=== PATIENT | female | born 1940 | race Caucasian/White ===

== ENCOUNTER 2018-10-09 18:22 | Emergency (ER) | payer MEDICARE ==
[2015-08-14 10:51] VITALS: Wt 59.0 kg
[~2018-10-09 18:22] MED LIST changes: -ONDA4TAB97 PO
--- NOTE | 2018-10-09 18:28 | ER Report ---
History and Physical Time Seen By MD: 18:28 HPI/ROS CHIEF COMPLAINT: Fall with subarachnoid bleed HISTORY OF PRESENT ILLNESS: 78-year-old female patient presents to emergency room with complaint of a fall with a subarachnoid bleed. Patient states that she was considering him dog food at about 3:30 this afternoon. She states that her nephew is holding the door open for her when she stepped back and lost her balance falling backwards and striking the back of her head. She states she did try to grab onto the railing to prevent the fall, however was unable to. Patient states that she went to [facility], an urgent care here in [place]. She states that they did put hecotr in her scalp and sent her over here for a CT scan. She was contacted by the provider who told her there may be something wrong and she was directed to come to the emergency room for further evaluation. Patient denies having a headache, nausea, vomiting, dizziness. She states she is not taking any medication for this. She denies any neck or back pain. REVIEW OF SYSTEMS: Respiratory: No cough, no dyspnea. Cardiovascular: No chest pain, no palpitations. Gastrointestinal: No vomiting, no abdominal pain. Musculoskeletal: No back pain. Allergies: Coded Allergies: No Known Drug Allergies (Unverified , 10/09/18) Home Meds Reported Medications Calcium Carb & Cit/Vitamin D3 (CALCIUM + D3 ER TABLET) 1 Each Tablet.er, 1 EACH PO DAILY 08/11/15 Multivitamin (MULTI VITAMIN DAILY) 1 Each Tablet, 1 EACH PO QDAY 08/05/15 Lutein (LUTEIN) 10 Mg Tablet, 10 MG PO QDAY 08/05/15 Losartan Potassium (LOSARTAN POTASSIUM) 100 Mg Tablet, 100 MG PO QDAY 08/05/15 Levothyroxine Sodium (SYNTHROID) 125 Mcg Tablet, 125 MCG PO QDAY 08/05/15 Discontinued Reported Medications Spironolactone (SPIRONOLACTONE) 25 Mg Tablet, 25 MG PO QDAY 08/05/15 Past Medical/Surgical History Patient has a past medical history of concussion, migraine, hypertension, arthritis, hypothyroidism, alcohol use, breast cancer. Patient has surgical history of appendectomy, hysterectomy, partial thyroidectomy, carpal tunnel release bilaterally. Reviewed Nurses Notes: Yes Hx Smoking: No Smoking Status: Never Smoker Hx Alcohol Use: Yes Constitutional Vital Sign - Last 24 Hours 10/09/18 10/09/18 10/09/18 10/09/18 18:27 18:27 18:30 18:37 Temp 98.2 Pulse 100 121 Resp 16 B/P (MAP) 155/88 155/88 (110) 164/102 (122) Pulse Ox 87 90 O2 Delivery Room Air 10/09/18 10/09/18 10/09/18 10/09/18 18:52 19:00 19:07 19:12 Pulse 87 85 86 B/P (MAP) 152/100 (117) Pulse Ox 82 91 92 10/09/18 10/09/18 10/09/18 10/09/18 19:27 19:30 19:42 19:57 Pulse 93 101 99 B/P (MAP) 155/96 (115) Pulse Ox 94 89 88 10/09/18 10/09/18 10/09/18 10/09/18 20:00 20:12 20:27 20:30 Pulse 96 105 B/P (MAP) ???/??? (1665) 135/100 (112) Pulse Ox 97 96 10/09/18 10/09/18 10/09/18 10/09/18 20:42 20:57 21:00 21:02 Pulse 97 97 B/P (MAP) 132/112 (119) Pulse Ox 96 97 O2 Flow Rate 2.0 10/09/18 10/09/18 10/09/18 21:05 21:20 21:35 Pulse ? Physical Exam General Appearance: The patient is alert, has no immediate need for airway protection and no current signs of toxicity. Eyes: Pupils equal and round no injection. Extraocular movements are intact. ENT: Tympanic membranes are pearly-bates, auditory canals are patent, mucous members are moist. Respiratory: Chest is non tender, lungs are clear to auscultation. Cardiac: regular rate and rhythm Gastrointestinal: Abdomen is soft and non tender, no masses, bowel sounds normal. Musculoskeletal: Neck: Neck is supple and non tender. Extremities have full range of motion and are non tender. Skin: No rashes or lesions. Patient has laceration to the back of her head which has been stapled. Neuro: Patient is alert and oriented 4, cranial nerves II through XII grossly intact. Patient was able to complete 3 word recall 3/3 at zero minutes and 3/3 at 5 minutes DIFFERENTIAL DIAGNOSIS: After history and physical exam differential diagnosis was considered for subarachnoid bleed, concussion. Medical Decision Making Data Points Result Diagram: 10/09/18184610/09/187 Laboratory Hematology Test 10/09/18 18:47 Red Blood Count 4.83 M/uL (4.17-5.56) Mean Corpuscular Volume 89.5 fL (80.0-96.0) Mean Corpuscular Hemoglobin 29.9 pg (26.0-33.0) Mean Corpuscular Hemoglobin Concent 33.4 g/dL (32.0-36.0) Red Cell Distribution Width 14.4 % (11.5-14.5) Mean Platelet Volume 9.3 fL (7.2-11.1) Neutrophils (%) (Auto) 82.2 % (39.4-72.5) Lymphocytes (%) (Auto) 11.2 % (17.6-49.6) Monocytes (%) (Auto) 5.6 % (4.1-12.4) Eosinophils (%) (Auto) 0.5 % (0.4-6.7) Basophils (%) (Auto) 0.5 % (0.3-1.4) Nucleated RBC Relative Count (auto) 0.0 /100WBC Neutrophils # (Auto) 6.0 K/uL (2.0-7.4) Lymphocytes # (Auto) 0.8 K/uL (1.3-3.6) Monocytes # (Auto) 0.4 K/uL (0.3-1.0) Eosinophils # (Auto) 0.0 K/uL (0.0-0.5) Basophils # (Auto) 0.0 K/uL (0.0-0.1) Nucleated RBC Absolute Count (auto) 0.00 K/uL Prothrombin Time 12.9 seconds (12.0-14.4) Prothromb Time International Ratio 0.98 Activated Partial Thromboplast Time 27 seconds (23-35) Sodium Level 134 mmol/L (137-145) Potassium Level 3.7 mmol/L (3.5-5.0) Chloride Level 105 mmol/L (98-107) Carbon Dioxide Level 23 mmol/L (22-31) Blood Urea Nitrogen 19 mg/dl (7-18) Creatinine 0.70 mg/dl (0.52-1.04) Glomerular Filtration Rate Calc > 60.0 Random Glucose 93 mg/dl (75-110) Calcium Level 9.3 mg/dl (8.4-10.2) Total Bilirubin 0.7 mg/dl (0.2-1.3) Aspartate Amino Transf (AST/SGOT) 66 U/L (0-35) Alanine Aminotransferase (ALT/SGPT) 64 U/L (0-56) Alkaline Phosphatase 70 U/L (0-126) Total Protein 7.3 g/dl (6.3-8.2) Albumin 4.4 g/dl (3.5-5.0) Chemistry Test 10/09/18 18:47 White Blood Count 7.3 k/uL (4.5-11.0) Red Blood Count 4.83 M/uL (4.17-5.56) Hemoglobin 14.4 g/dL (12.0-16.0) Hematocrit 43.2 % (34.0-47.0) Mean Corpuscular Volume 89.5 fL (80.0-96.0) Mean Corpuscular Hemoglobin 29.9 pg (26.0-33.0) Mean Corpuscular Hemoglobin Concent 33.4 g/dL (32.0-36.0) Red Cell Distribution Width 14.4 % (11.5-14.5) Platelet Count 174 K/uL (150-450) Mean Platelet Volume 9.3 fL (7.2-11.1) Neutrophils (%) (Auto) 82.2 % (39.4-72.5) Lymphocytes (%) (Auto) 11.2 % (17.6-49.6) Monocytes (%) (Auto) 5.6 % (4.1-12.4) Eosinophils (%) (Auto) 0.5 % (0.4-6.7) Basophils (%) (Auto) 0.5 % (0.3-1.4) Nucleated RBC Relative Count (auto) 0.0 /100WBC Neutrophils # (Auto) 6.0 K/uL (2.0-7.4) Lymphocytes # (Auto) 0.8 K/uL (1.3-3.6) Monocytes # (Auto) 0.4 K/uL (0.3-1.0) Eosinophils # (Auto) 0.0 K/uL (0.0-0.5) Basophils # (Auto) 0.0 K/uL (0.0-0.1) Nucleated RBC Absolute Count (auto) 0.00 K/uL Prothrombin Time 12.9 seconds (12.0-14.4) Prothromb Time International Ratio 0.98 Activated Partial Thromboplast Time 27 seconds (23-35) Glomerular Filtration Rate Calc > 60.0 Calcium Level 9.3 mg/dl (8.4-10.2) Total Bilirubin 0.7 mg/dl (0.2-1.3) Aspartate Amino Transf (AST/SGOT) 66 U/L (0-35) Alanine Aminotransferase (ALT/SGPT) 64 U/L (0-56) Alkaline Phosphatase 70 U/L (0-126) Total Protein 7.3 g/dl (6.3-8.2) Albumin 4.4 g/dl (3.5-5.0) Coagulation Test 10/09/18 18:47 Prothrombin Time 12.9 seconds Prothromb Time International Ratio 0.98 Activated Partial Thromboplast Time 27 seconds EKG/Imaging Imaging CT scan was done prior to arrival in the emergency room and this is the according report: CT Head without contrast Indication: Fell and hit head. Posterior hematoma and laceration. Comparison: None available Technique: Axial CT images were obtained through the brain from the skull base to the vertex without administration of IV contrast. Reformatted coronal and sagittal images were also obtained. One of the following dose optimization techniques was utilized in the performanc e of this exam: automated exposure control; adjustment of the mA and/or kV according to the patient's size; or use of an iterative reconstruction technique. Specific details can be referenced in the facility's radiology CT exam operational policy. Findings: No evidence of mass, mass effect, or midline shift. There is mild thickening and increased attenuation of the falx. On the coronal images this measures 2.8 mm. This may represent subacute parenchymal hemorrhage. The tentorium shows a more normal appearance. There is no other indication of intracranial bleed, midline shift, extra-axial fluid collection or hydrocephalus. Mild age-related cerebral atrophy. Mild periventricular white matter ischemic changes consistent small vessel disease. Bates/white matter differentiation appears normal. The bony structures show no fractures or aggressive bony lesions. The left posterior scalp shows a large hematoma and skin hector. The visualized paranasal sinuses and mastoid air cells are clear. IMPRESSION: 1. There is mild thickening and increased attenuation of the falx consistent with an acute subarachnoid hemorrhage. There is no associated sequelae. No other indication of acute intracranial abnormality. No skull fracture. Large posterior left scalp hematoma with skin hector. I called report to YSABEL LOWE at 10/09/2018 6:16 PM. Report Dictated By: Ever Blas at 10/09/2018 6:04 PM Report E-Signed By: Ever Blas at 10/09/2018 6:16 PM INDICATION: fall. DATE: 10/09/2018 9:23 PM. TECHNIQUE: CT VERTEBRA CERVICAL (NON CON). Noncontrast axial CT imaging was performed through the cervical spine with sagittal and coronal reformats. One of the following dose optimization techniques was utilized in the performance of this exam: Automated exposure control; adjustment of the mA and/or kV according to the patient's size; or use of an iterative reconstruction technique. Specific details can be referenced in the facility's radiology CT exam operational policy. COMPARISON: None FINDINGS: Vertebral body heights are maintained. Vertebral body and facet alignment are normal. There is no cervical spine fracture or dislocation. Multilevel degenerative findings are relatively mild except at the C1-dens articulation where there are moderate to severe. The imaged lung apices show only minimal scarring. IMPRESSION: No cervical spine fracture or dislocation. Report Dictated By: Zhou Hardy MD at 10/09/2018 9:23 PM Report E-Signed By: Zhou Hardy MD at 10/09/2018 9:37 PM ED Course/Re-evaluation ED Course Patient was admitted on exam room, history and physical were obtained. Differential diagnoses were considered. On examination patient is alert and oriented 4, cranial nerves II-XII grossly intact. Lungs are clear, heart is regular. A CBC, CMP, PT and PTT were ordered. Lab results were unremarkable. At that time I did call and discuss the case with Dr. Crews, trauma surgeon at [facility], who agreed to accept the patient for admission. He did request that a CT scan of the cervical spine be done prior to transfer. I then spoke with Dr. Diallo, ER physician at [facility], who was grateful for the report prior to transfer. I discussed the results of the labs with patient as well as conversation with Dr. Crews. I discussed were going to do a CT scan of the cervical spine to make sure there is no fractures. She verbalized understanding and agreement. She understood that she is going to transfer images were transferred down by ambulance. Patient denied having any questions or concerns at this time. Decision to Disposition Date: Oct 09, 2018 Decision to Disposition Time: 20:16 Depart Departure Latest Vital Signs Vital Signs Date Time Temp Pulse Resp B/P (MAP) Pulse Ox O2 Delivery O2 Flow Rate FiO2 10/09/18 21:35 ??? 10/09/18 21:02 2.0 10/09/18 21:00 132/112 (119) 10/09/18 20:57 97 10/09/18 18:27 98.2 16 Room Air Impression: Primary Impression: Subarachnoid bleed Condition: Condition Unchanged Disposition: XFER TO [facility] Referrals: AARON MCLAUGHLIN (PCP) SANJUANA PHAM Oct 09, 2018 18:28
[2018-10-09 18:57] LABS: PLATELET COUNT, AUTOMATED 174 K/uL (150-450)
[2018-10-09 19:25] LABS: INR 0.98
[2018-10-09 21:00] VITALS: BP 132/112
--- NOTE | 2018-10-09 21:40 | RADIOLOGY IMAGING REPORT ---
FACILITY: [facility] PATIENT NAME: Shanti Zarate : 1940 MR: [id number] V: [id number] EXAM DATE: ORDERING PHYSICIAN: SANJUANA PHAM TECHNOLOGIST: Location: [facility] Patient: Shanti Zarate : 1940 Visit/Account:[id number] Date of Sevice: 10/09/2018 INDICATION: fall. DATE: 10/09/2018 9:23 PM. TECHNIQUE: CT VERTEBRA CERVICAL (NON CON). Noncontrast axial CT imaging was performed through the ce rvical spine with sagittal and coronal reformats. One of the following dose optimization techniques was utilized in the performance of this exam: Automated exposure control; adjustment of the mA and/or kV according to the patient's size; or use of an iterative reconstruction technique. Specific deta ils can be referenced in the facility's radiology CT exam operational policy. COMPARISON: None FINDINGS: Vertebral body heights are maintained. Vertebral body and facet alignment are normal. The re is no cervical spine fracture or dislocation. Multilevel degenerative findings are relatively mil d except at the C1-dens articulation where there are moderate to severe. The imaged lung apices show only minimal scarring. IMPRESSION: No cervical spine fracture or dislocation. Report Dictated By: Zhou Hardy MD at 10/09/2018 9:23 PM Report E-Signed By: Zhou Hardy MD at 10/09/2018 9:37 PM [id number]
== END 2018-10-09 21:35 | disposition short-term general hospital (02) ==
LOC: ER 18:52
DX: S06.6X9A Traumatic subarachnoid hemorrhage with loss of consciousness of unspecified duration, initial encounter (principal); W01.198A Fall on same level from slipping, tripping and stumbling with subsequent striking against other object, initial encounter
CPT/HCPCS: 72125; 82040; 82247; 82310; 82374; 82435; 82565; 82947; 84075; 84132; 84155; 84295; 84450; 84460; 84520; 85025; 85610; 85730; 99285

== ENCOUNTER → 2018-10-09 | Outpatient (CLI) | payer MEDICARE ==
[2015-08-14 10:51] VITALS: BMI 20.5
[~2018-10-09] MED LIST: CA C1TAB10 PO; CALC1TAB32 PO; DOCU-202 PO; LEVO125T77 PO; LOSA100T75 PO; LUTE10TA3 PO; MULT1TAB64 PO; PER PO; SPIR25TA80 PO; VITA200C44 PO
--- NOTE | 2018-10-09 18:19 | RADIOLOGY IMAGING REPORT ---
FACILITY: [facility] PATIENT NAME: Shanti Zarate : 1940 MR: [id number] V: [id number] EXAM DATE: ORDERING PHYSICIAN: YSABEL LOWE TECHNOLOGIST: [facility] Patient: Shanti Zarate : 1940 Visit/Account:[id number] Date of Sevice: 10/09/2018 CT Head without contrast Indication: Fell and hit head. Posterior hematoma and laceration. Comparison: None available Technique: Axial CT images were obtained through the brain from the skull base to the vertex without administration of IV contrast. Reformatted coronal and sagittal images were also obtained. One of the following dose optimization techniques was utilized in the performance of this exam: autom ated exposure control; adjustment of the mA and/or kV according to the patient's size; or use of an i terative reconstruction technique. Specific details can be referenced in the facility's radiology CT exam operational policy. Findings: No evidence of mass, mass effect, or midline shift. There is mild thickening and increased attenuation of the falx. On the coronal images this measures 2 .8 mm. This may represent subacute parenchymal hemorrhage. The tentorium shows a more normal appearan ce. There is no other indication of intracranial bleed, midline shift, extra-axial fluid collection o r hydrocephalus. Mild age-related cerebral atrophy. Mild periventricular white matter ischemic changes consistent smal l vessel disease. Bates/white matter differentiation appears normal. The bony structures show no fractures or aggressive bony lesions. The left posterior scalp shows a la rge hematoma and skin hector. The visualized paranasal sinuses and mastoid air cells are clear. IMPRESSION: 1. There is mild thickening and increased attenuation of the falx consistent with an acute subarachno id hemorrhage. There is no associated sequelae. No other indication of acute intracranial abnormality . No skull fracture. Large posterior left scalp hematoma with skin hector. I called report to YSABEL LOWE at 10/09/2018 6:16 PM. Report Dictated By: Ever Blas at 10/09/2018 6:04 PM Report E-Signed By: Ever Blas at 10/09/2018 6:16 PM [id number]
== END ==
LOC: CT 17:35
PROVIDERS: ATTEND Physician Assistant
DX: S06.6X0A Traumatic subarachnoid hemorrhage without loss of consciousness, initial encounter (principal)
CPT/HCPCS: 70450

== ENCOUNTER → 2018-10-09 | Outpatient (CLI) | payer MEDICARE ==
[2015-08-14 10:51] VITALS: BMI 20.5
[~2018-10-09] MED LIST changes: +ONDA4TAB97 PO
== END ==
LOC: AMB 21:15
PROVIDERS: ATTEND Nurse Practitioner
DX: I60.8 Other nontraumatic subarachnoid hemorrhage (principal); R51 Headache
CPT/HCPCS: A0425; A0428

== ENCOUNTER 2018-10-15 07:10 | Emergency (ER) | payer MEDICARE ==
[2015-08-14 10:51] VITALS: Wt 55.8 kg
--- NOTE | 2018-10-15 07:12 | ER Report ---
History and Physical Time Seen By MD: 07:12 HPI/ROS CHIEF COMPLAINT: Fevers, chills, headache HISTORY OF PRESENT ILLNESS:Patient was seen on October 09 status post a traumatic fall resulting in subarachnoid hemorrhage. She was seen and treated at [facility] and discharged. Patient states around 3:30 this morning she felt weak in the knees subjective fevers and chills along with headache and body ache. She denies chest pain or chest pressure. She denies shortness of breath. She denies any new traumatic injury. Because of recent head injury she was told that if she had any abnormal feelings that she should present to the emergency department for further evaluation. She states that she is taking Tylenol for pain but denies any NSAIDs or other anticoagulants. REVIEW OF SYSTEMS: Gen.: Subjective fever Respiratory: No cough, no dyspnea. Cardiovascular: No chest pain, no palpitations. Gastrointestinal: No vomiting, no abdominal pain. Musculoskeletal: No back pain. Generalized body aches Neurological: Headache Allergies: Coded Allergies: No Known Drug Allergies (Unverified , 10/09/18) Home Meds Active Scripts Ondansetron Hcl (ZOFRAN) 4 Mg Tablet, 4 MG PO Q8H for Nausea, #15 TAB 0 Refills Prov:FREDDY OAKES MD 10/15/18 Reported Medications Calcium Carb & Cit/Vitamin D3 (CALCIUM + D3 ER TABLET) 1 Each Tablet.er, 1 EACH PO DAILY 08/11/15 Multivitamin (MULTI VITAMIN DAILY) 1 Each Tablet, 1 EACH PO QDAY 08/05/15 Lutein (LUTEIN) 10 Mg Tablet, 10 MG PO QDAY 08/05/15 Losartan Potassium (LOSARTAN POTASSIUM) 100 Mg Tablet, 100 MG PO QDAY 08/05/15 Levothyroxine Sodium (SYNTHROID) 125 Mcg Tablet, 125 MCG PO QDAY 08/05/15 Discontinued Reported Medications Spironolactone (SPIRONOLACTONE) 25 Mg Tablet, 25 MG PO QDAY 08/05/15 Past Medical/Surgical History S medical history for hypertension, hypothyroidism, recent subarachnoid hemorrhage. Hx Smoking: No Smoking Status: Never Smoker Hx Substance Use Disorder: No Hx Alcohol Use: Yes Constitutional Vital Sign - Last 24 Hours 10/15/18 10/15/18 10/15/18 10/15/18 07:10 07:13 07:13 07:30 Temp 98.2 Pulse ??? 91 91 Resp 16 B/P (MAP) 166/108 (127) 166/108 147/87 (107) Pulse Ox 90 O2 Delivery Room Air 10/15/18 10/15/18 10/15/18 10/15/18 07:45 08:00 08:10 08:15 Pulse 88 B/P (MAP) 147/92 (110) 137/96 (110) 122/96 (105) Pulse Ox 89 Physical Exam General/Constitutional: Patient is awake, alert, nontoxic and in no acute respiratory distress. Head: Normocephalic and atraumatic. Eyes: Conjunctival clear, Pupils are equal and reactive to light. Extraocular muscles are intact and symmetrical. Sclera are clear and anicteric. Ears:External canals are clear. Tympanic membranes are clear with normal landmarks and light reflex. Nares: No rhinorrhea or bleeding. Turbinates are pink and moist. Oropharyngeal: Mucous membranes are moist. There is no pharyngeal erythema or exudate. There are no palatal petechiae. Uvula is midline and symmetrical. Neck: Supple, no adenopathy. Cardiovascular: Heart is regular rate and rhythm without audible murmurs, rubs or gallops. Pulmonary: Lungs are clear to auscultation bilaterally. There are no wheezes, rales, or rhonchi. Chest rise is symmetrical Abdomen: Soft, nontender, no guarding or peritoneal signs. Extremities: No gross deformities, No peripheral cyanosis. Able to move all 4 extremities. Neuro: Alert and oriented X3, Skin: No rashes, skin is warm dry and well perfused. Medical Decision Making Data Points Result Diagram: 10/15/18 0742 10/15/18 0742 Laboratory Hematology Test 10/15/18 07:21 10/15/18 07:42 Influenza Virus Type A (PCR) Negative (NEGATIVE) Influenza Virus Type B (PCR) Negative (NEGATIVE) Red Blood Count 4.76 M/uL (4.17-5.56) Mean Corpuscular Volume 89.8 fL (80.0-96.0) Mean Corpuscular Hemoglobin 29.7 pg (26.0-33.0) Mean Corpuscular Hemoglobin Concent 33.1 g/dL (32.0-36.0) Red Cell Distribution Width 14.3 % (11.5-14.5) Mean Platelet Volume 8.9 fL (7.2-11.1) Neutrophils (%) (Auto) 77.0 % (39.4-72.5) Lymphocytes (%) (Auto) 14.5 % (17.6-49.6) Monocytes (%) (Auto) 6.0 % (4.1-12.4) Eosinophils (%) (Auto) 1.8 % (0.4-6.7) Basophils (%) (Auto) 0.7 % (0.3-1.4) Nucleated RBC Relative Count (auto) 0.0 /100WBC Neutrophils # (Auto) 4.2 K/uL (2.0-7.4) Lymphocytes # (Auto) 0.8 K/uL (1.3-3.6) Monocytes # (Auto) 0.3 K/uL (0.3-1.0) Eosinophils # (Auto) 0.1 K/uL (0.0-0.5) Basophils # (Auto) 0.0 K/uL (0.0-0.1) Nucleated RBC Absolute Count (auto) 0.00 K/uL Prothrombin Time 12.8 seconds (12.0-14.4) Prothromb Time International Ratio 0.97 Activated Partial Thromboplast Time 29 seconds (23-35) Sodium Level 132 mmol/L (137-145) Potassium Level 3.7 mmol/L (3.5-5.0) Chloride Level 102 mmol/L (98-107) Carbon Dioxide Level 25 mmol/L (22-31) Blood Urea Nitrogen 16 mg/dl (7-18) Creatinine 0.60 mg/dl (0.52-1.04) Glomerular Filtration Rate Calc > 60.0 Random Glucose 95 mg/dl (75-110) Calcium Level 9.7 mg/dl (8.4-10.2) Total Bilirubin 0.7 mg/dl (0.2-1.3) Aspartate Amino Transf (AST/SGOT) 31 U/L (0-35) Alanine Aminotransferase (ALT/SGPT) 32 U/L (0-56) Alkaline Phosphatase 62 U/L (0-126) Total Protein 7.2 g/dl (6.3-8.2) Albumin 4.2 g/dl (3.5-5.0) Chemistry Test 10/15/18 07:21 10/15/18 07:42 Influenza Virus Type A (PCR) Negative (NEGATIVE) Influenza Virus Type B (PCR) Negative (NEGATIVE) White Blood Count 5.5 k/uL (4.5-11.0) Red Blood Count 4.76 M/uL (4.17-5.56) Hemoglobin 14.2 g/dL (12.0-16.0) Hematocrit 42.8 % (34.0-47.0) Mean Corpuscular Volume 89.8 fL (80.0-96.0) Mean Corpuscular Hemoglobin 29.7 pg (26.0-33.0) Mean Corpuscular Hemoglobin Concent 33.1 g/dL (32.0-36.0) Red Cell Distribution Width 14.3 % (11.5-14.5) Platelet Count 189 K/uL (150-450) Mean Platelet Volume 8.9 fL (7.2-11.1) Neutrophils (%) (Auto) 77.0 % (39.4-72.5) Lymphocytes (%) (Auto) 14.5 % (17.6-49.6) Monocytes (%) (Auto) 6.0 % (4.1-12.4) Eosinophils (%) (Auto) 1.8 % (0.4-6.7) Basophils (%) (Auto) 0.7 % (0.3-1.4) Nucleated RBC Relative Count (auto) 0.0 /100WBC Neutrophils # (Auto) 4.2 K/uL (2.0-7.4) Lymphocytes # (Auto) 0.8 K/uL (1.3-3.6) Monocytes # (Auto) 0.3 K/uL (0.3-1.0) Eosinophils # (Auto) 0.1 K/uL (0.0-0.5) Basophils # (Auto) 0.0 K/uL (0.0-0.1) Nucleated RBC Absolute Count (auto) 0.00 K/uL Prothrombin Time 12.8 seconds (12.0-14.4) Prothromb Time International Ratio 0.97 Activated Partial Thromboplast Time 29 seconds (23-35) Glomerular Filtration Rate Calc > 60.0 Calcium Level 9.7 mg/dl (8.4-10.2) Total Bilirubin 0.7 mg/dl (0.2-1.3) Aspartate Amino Transf (AST/SGOT) 31 U/L (0-35) Alanine Aminotransferase (ALT/SGPT) 32 U/L (0-56) Alkaline Phosphatase 62 U/L (0-126) Total Protein 7.2 g/dl (6.3-8.2) Albumin 4.2 g/dl (3.5-5.0) Coagulation Test 10/15/18 07:42 Prothrombin Time 12.8 seconds Prothromb Time International Ratio 0.97 Activated Partial Thromboplast Time 29 seconds EKG/Imaging Imaging [place] [facility] [place] NAME: Shanti Zarate : 1940 MR: [id number] V: [id number] EXAM DATE: [id number] ORDERING PHYSICIAN: FREDDY OAKES TECHNOLOGIST: Location: [facility] Patient: Shanti Zarate : 1940 Visit/Account:[id number] Date of Sevice: 10/15/[address] scan without contrast COMPARISONS: October 09, 2018 ADDITIONAL PERTINENT HISTORY: Recent trauma TECHNIQUE: Multiple axial images were obtained from the skull base to the vertex without IV contrast. One of the following dose optimization techniques was utilized in the performance of this exam: Automated exposure control; adjustment of the mA and/or kV according to the patient's size; or use of an iterative reconstruction technique. Specific details can be referenced in the facility's radiology CT exam operational policy. FINDINGS: Midline shift: Negative Ventricles: Negative Brain parenchyma: Negative Extra-axial spaces: Continued thin subdural hematoma along the interhemispheric falx not significantly changed from previous exam. No new extra-axial fluid collections. Intracranial vasculature: Cavernous internal carotid artery calcifications. Otherwise negative Osseous structures: Negative Paranasal sinuses and mastoid air cells: Negative Surrounding soft tissues and orbits: Left parietal scalp soft tissue hematoma slightly decreased from previous exam. IMPRESSION: 1. Stable subdural hematoma along the interhemispheric falx. 2. Slightly improved left parietal scalp soft tissue hematoma. 3. No acute intracranial pathology. Report Dictated By: Baldo Padron MD at 10/15/2018 8:15 AM Report E-Signed By: Baldo Padron MD at 10/15/2018 8:18 AM WSN:[id number] ED Course/Re-evaluation ED Course 10/15/2018 7:33:27 am and at this time will be to check repeat CT of the head. We'll check CBC CMP coags will also check influenza screening. Decision to Disposition Date: Oct 15, 2018 Decision to Disposition Time: 08:29 Depart Departure Latest Vital Signs Vital Signs Date Time Temp Pulse Resp B/P (MAP) Pulse Ox O2 Delivery O2 Flow Rate FiO2 10/15/18 08:15 122/96 (105) 10/15/18 08:10 88 89 10/15/18 07:13 98.2 16 Room Air Impression: Primary Impression: Post concussion syndrome Condition: Improved Disposition: HOME OR SELF-CARE Referrals: AARON MCLAUGHLIN (PCP) New Scripts Ondansetron Hcl (ZOFRAN) 4 Mg Tablet 4 MG PO Q8H for Nausea, #15 TAB 0 Refills Prov: FREDDY OAKES MD 10/15/18 Patient Instructions: Post Concussion Syndrome (ED) FREDDY OAKES MD Oct 15, 2018 07:12
[2018-10-15] MEDS ORDERED: NS(*) 0.9% 1000 ML BAG 1,000 ML IV ONE (07:35)
[2018-10-15 07:50] LABS: PLATELET COUNT, AUTOMATED 189 K/uL (150-450)
[2018-10-15 08:00] LABS: INR 0.97
--- NOTE | 2018-10-15 08:21 | RADIOLOGY IMAGING REPORT ---
FACILITY: [facility] - [place] PATIENT NAME: Shanti Zarate : 1940 MR: [id number] V: [id number] EXAM DATE: ORDERING PHYSICIAN: FREDDY OAKES TECHNOLOGIST: [place] [facility] [place] Patient: Shanti Zarate : 1940 Visit/Account:[id number] Date of Sevice: 10/15/[address] scan without contrast COMPARISONS: October 09, 2018 ADDITIONAL PERTINENT HISTORY: Recent trauma TECHNIQUE: Multiple axial images were obtained from the skull base to the vertex without IV contrast . One of the following dose optimization techniques was utilized in the performance of this exam: Aut omated exposure control; adjustment of the mA and/or kV according to the patient's size; or use of an iterative reconstruction technique. Specific details can be referenced in the facility's radiology CT exam operational policy. FINDINGS: Midline shift: Negative Ventricles: Negative Brain parenchyma: Negative Extra-axial spaces: Continued thin subdural hematoma along the interhemispheric falx not significant ly changed from previous exam. No new extra-axial fluid collections. Intracranial vasculature: Cavernous internal carotid artery calcifications. Otherwise negative Osseous structures: Negative Paranasal sinuses and mastoid air cells: Negative Surrounding soft tissues and orbits: Left parietal scalp soft tissue hematoma slightly decreased fro m previous exam. IMPRESSION: 1. Stable subdural hematoma along the interhemispheric falx. 2. Slightly improved left parietal scalp soft tissue hematoma. 3. No acute intracranial pathology. Report Dictated By: Baldo Padron MD at 10/15/2018 8:15 AM Report E-Signed By: Baldo Padron MD at 10/15/2018 8:18 AM WSN:[id number]
[2018-10-15] MEDS ORDERED: ONDA4TAB97 PO (08:30)
[2018-10-15 08:48] VITALS: BP 123/82
== END 2018-10-15 08:49 | disposition home or self-care (01) ==
LOC: ER 07:17
DX: F07.81 Postconcussional syndrome (principal)
CPT/HCPCS: 70450; 85025; 85610; 85730; 87502; 99284; J7030; 82040; 82247; 82310; 82374; 82435; 82565; 82947; 84075; 84132; 84155; 84295; 84450; 84460; 84520

== ENCOUNTER → 2018-10-24 | Outpatient (CLI) | payer MEDICARE ==
[2015-08-14 10:51] VITALS: BMI 20.5
[~2018-10-24] MED LIST changes: +ONDA4TAB97 PO
--- NOTE | 2018-10-24 11:23 | EKG ---
[place] [facility] [place] NAME: BOB EDMONDS : [id number] MR: [id number] V: [id number] EXAM DATE: ORDERING PHYSICIAN: AARON MCLAUGHLIN TECHNOLOGIST: DELMY Test Reason : HIGH BP Blood Pressure : / mmHG Vent. Rate : 072 BPM Atrial Rate : 072 BPM P-R Int : 172 ms QRS Dur : 078 ms QT Int : 380 ms P-R-T Axes : 077 067 052 degrees QTc Int : 416 ms Normal sinus rhythm Normal ECG When compared with ECG of 13-AUG-2015 08:20, No significant change was found Confirmed by EDUARD SANDS ([id number]) on 10/24/2018 4:37:37 PM Referred By: ARNOLDO Confirmed By:EDUARD SANDS
--- NOTE | 2018-10-24 18:53 | RADIOLOGY IMAGING REPORT ---
FACILITY: [facility] PATIENT NAME: Shanti Zarate : 1940 MR: [id number] V: [id number] EXAM DATE: ORDERING PHYSICIAN: AARON MCLAUGHLIN TECHNOLOGIST: Location: [facility] - [place] Patient: Shanti Zarate : 1940 Visit/Account:[id number] Date of Sevice: 10/24/2018 Examination: 1 view pelvis and 1 view right hip. Comparison: None. History: Persistent right hip pain since a fall onto 2018. Findings: The pelvic ring is intact. Pubic symphysis and sacroiliac joint alignment is maintained. The arcuate lines of the sacrum are intact. Hip alignment is within normal limits and symmetric. Hi p joint spaces are well-preserved. The proximal right femur is intact; femoral head and neck contour s within normal limits. Probable right femoral artery atherosclerosis. IMPRESSION: No pelvis or right hip fracture or malalignment. Report Dictated By: Marino Isbell MD at 10/24/2018 6:44 PM Report E-Signed By: Marino Isbell MD at 10/24/2018 6:48 PM WSN:[id number]
== END ==
LOC: RAD 10:50
PROVIDERS: ATTEND Physician Assistant
DX: R03.0 Elevated blood-pressure reading, without diagnosis of hypertension (principal); M25.551 Pain in right hip
CPT/HCPCS: 93005

== ENCOUNTER → 2018-11-16 | Outpatient (CLI) | payer MEDICARE ==
[2015-08-14 10:51] VITALS: BMI 20.5
--- NOTE | 2018-11-16 16:13 | RADIOLOGY IMAGING REPORT ---
FACILITY: [facility] - [place] PATIENT NAME: Shanti Zarate : 1940 MR: [id number] V: [id number] EXAM DATE: ORDERING PHYSICIAN: RINKU CONTRERAS TECHNOLOGIST: Location: [facility] Patient: Shanti Zarate : 1940 Visit/Account:[id number] Date of Sevice: 11/16/2018 MR SPINE LUMBAR W/O CON COMPARISON: None Additional pertinent history: Lumbar radiculopathy Technique: Multiplanar multisequence lumbar spine MRI was performed without gadolinium enhancement. FINDINGS: Vertebral body heights and alignment: Minimal retrolisthesis of L5 on S1. Vertebral marrow signal: Type one degenerative endplate changes at L5-S1. Distal thoracic cord and conus: Negative. The conus ends at L1-L2. Surrounding soft tissues: Negative. Inspection of the disc spaces reveal the following: L5-S1: Mild retrolisthesis of L5 on S1. Posterior broad-based disc protrusion with facet hypertrophic changes. Mild bilateral neural foraminal narrowing without canal stenosis. L4-L5: Posterior broad-based disc protrusion with facet hypertrophic changes. Moderate bilateral neur al foraminal narrowing. Mild canal stenosis. L3-L4: Posterior broad-based disc protrusion with facet hypertrophic changes. Minimal circumferential disc bulging without significant canal or neural foraminal narrowing. L2-L3: Circumferential disc bulging with facet hypertrophic changes. No significant canal or neural f oraminal narrowing. L1-L2: Negative. T12-L1: Negative. IMPRESSION: 1. Multilevel spondylitic change as discussed above. 2. Findings felt to be potentially most significant at L4-L5 with mild canal stenosis and moderate bi lateral neural foraminal narrowing. Report Dictated By: Baldo Padron MD at 11/16/2018 4:04 PM Report E-Signed By: Baldo Padron MD at 11/16/2018 4:08 PM WSN:[email or web address]
--- NOTE | 2018-11-16 19:19 | RADIOLOGY IMAGING REPORT ---
FACILITY: [facility] - [place] PATIENT NAME: Shanti Zarate : 1940 MR: [id number] V: [id number] EXAM DATE: ORDERING PHYSICIAN: RINKU CONTRERAS TECHNOLOGIST: Location: [facility] [place] Patient: Shanti Zarate : 1940 Visit/Account:[id number] Date of Sevice: 11/16/2018 MRI cervical spine Indication: Cervical radiculopathy. Comparison: None available Technique: Sagittal T1-weighted, T2-weighted, STIR,, axial T2 weighted and gradient echo images were obtained through the cervical spine. Findings: Limited views of the posterior fossa are unremarkable. There is no abnormal signal within the visualized spinal cord. There is disc desiccation throughout the cervical spine levels mild disc space narrowing at C4-C5 and C5-C6. C2-C3: No significant central stenosis or neuralforaminal narrowing.. C3-C4: Moderate bilateral facet arthropathy. There is a mild diffuse disc ossified bulge and small c entral disc protrusion with overall mild central stenosis. No significant neural foraminal narrowing .. C4-C5: Mild diffuse disc bulge and small posterior annular fissure as well as facet arthropathy resul ts in overall mild central stenosis. There is mild left-sided neural foraminal narrowing and the rig ht neural foramen is patent.. C5-C6: Moderate diffuse disc bulge eccentric to the left as well as facet arthropathy results in over all mild to moderate central stenosis. There is moderate left-sided and mild right-sided neural fora greg narrowing.. C6-C7: No significant central stenosis or neuralforaminal narrowing.. C7-T1: No significant central stenosis or neuralforaminal narrowing.. IMPRESSION: 1. Degenerative changes cervical spine as above most significant at C5-C6 with there is mild to mode rate central stenosis and moderate left-sided neural foraminal narrowing. Report Dictated By: Austin Sol MD at 11/16/2018 7:11 PM Report E-Signed By: Austin Sol MD at 11/16/2018 7:14 PM WSN:[id number]
== END ==
LOC: MRI 02:19
PROVIDERS: ATTEND Physician Assistant Medical
DX: M47.897 Other spondylosis, lumbosacral region (principal); M47.892 Other spondylosis, cervical region
CPT/HCPCS: 72141; 72148